=== PATIENT | female | born 1955 | race Caucasian/White ===

== ENCOUNTER → 2016-07-02 | Outpatient (CLI) | payer OTHER ==
--- NOTE | 2016-07-03 14:23 | MM ---
Reason for exam: screening (asymptomatic). Last mammogram was performed 10 years and 1 month ago. History: Patient is postmenopausal. Physical Findings: A clinical breast exam by your physician is recommended on an annual basis and results should be correlated with mammographic findings. MG Screening Mammo w CAD Bilateral CC and MLO view(s) were taken. Prior study comparison: August 27, 2015, mammogram, performed at [facility]. November 26, 2012, mammogram, performed at [facility]. The breast tissue is heterogeneously dense. This may lower the sensitivity of mammography. No significant changes when compared with prior studies. ASSESSMENT: Negative, BI-RAD 1 RECOMMENDATION: Routine screening mammogram of both breasts in 1 year.
== END ==
LOC: RADMAMWWP 12:23
PROVIDERS: ATTEND Family Medicine
DX: Z12.31 Encounter for screening mammogram for malignant neoplasm of breast (principal)

== ENCOUNTER → 2016-09-26 | Outpatient (CLI) | payer OTHER ==
--- NOTE | 2016-09-26 16:37 | MR ---
MR brain without contrast HISTORY: Loss of memory headaches and dizziness Multiplanar multisequence imaging through the brain Correlation to prior MRI brain 03/18/2012 There is cortical atrophy. Mild periventricular white matter increased signal on inversion recovery a nd T2-weighted sequences is essentially stable. There is no hemorrhage or hydrocephalus. The orbits s how a symmetric appearance. Cerebellopontine angles, corpus callosum, pituitary, cervical medullary j unction are unremarkable. Normal vascular flow voids. There is no restricted diffusion to suggest sub acute ischemia. IMPRESSION: Stable exam, no acute abnormality. Probable age-related atrophy and chronic small vessel ischemia.
== END | disposition home or self-care (01) ==
LOC: RADMRIMAIN 15:26
PROVIDERS: ATTEND Nurse Practitioner Acute Care
DX: R41.3 Other amnesia (principal); Z88.0 Allergy status to penicillin
CPT/HCPCS: 70551

== ENCOUNTER → 2017-11-24 | Outpatient (CLI) | payer OTHER ==
--- NOTE | 2017-11-24 14:32 | US ---
EXAMINATION TYPE: US abdomen complete DATE OF EXAM: 11/24/2017 COMPARISON: NONE CLINICAL HISTORY: Epigastric Pain, R10.13. EXAM MEASUREMENTS: Liver Length: 12.3 cm CBD: 0.4 cm Spleen: 8 cm Right Kidney: 10.4 cm cm Left Kidney: 10.8 cm Pancreas: Normal in its visualized portions Liver: wnl Gallbladder: Not seen Evidence for sonographic Quezada's sign: CBD: wnl Spleen: wnl Right Kidney: wnl Left Kidney: wnl Upper IVC: wnl Abd Aorta: wnl Kidneys show normal cortical medullary differentiation. There is no ascites. IMPRESSION: Gallbladder is not visualized.
== END | disposition home or self-care (01) ==
LOC: RADUSWWP 09:14 → EEVIPCON 09:40
DX: R10.13 Epigastric pain (principal)
CPT/HCPCS: 76700